=== PATIENT | male | born 1960 | race Caucasian/White ===

== ENCOUNTER 2021-01-15 07:43 | Inpatient (IN) | payer OTHER ==
[2021-01-15] MEDS: Nitroglycerin 50 MG/250 ML BOT 250 ML IVPB SCH (08:00)
[2021-01-15] MEDS ORDERED: Nitroglycerin 50 MG/250 ML BOT 250 ML ONE (08:00)
[2021-01-15 08:29] VITALS: BMI 36.5
[2021-01-15] MEDS ORDERED: Aspirin 325 MG TAB PO SCH (10:00)
[2021-01-15 10:24] LABS: #Eosinphils 0.1 10x3/uL (0.0-0.5); #Monocytes 0.4 10x3/uL (0.0-1.1); #Neutrophils 4.9 10x3/uL (1.5-8.4); %Basophils 0.6 % (0.0-2.0); %Eosinophils 1.7 % (0.0-6.0); %Lymphocytes 20.3 % (18.0-47.0); %Monocytes 5.5 % (0.0-10.0); %Neutrophils 71.6 % (40.0-75.0); Hemoglobin 13.5 g/dL (13.5-17.5); Mean Corpuscular HGB CONC 33.6 g/dL (32.0-36.0); Mean Corpuscular Hemoglobin 30.9 pg (27.0-33.0); Mean Platelet Volume 10.1 fl (7.4-10.4); Platelet Count 224 10x3/uL (150-450); RBC Distribution Width 12.5 % (11.5-14.5); Red Blood Cell (RBC) Count 4.37 10x6/uL (4.32-5.72); White Blood Cell (WBC) Count 6.9 10x3/uL (3.5-10.5)
[2021-01-15 10:34] LABS: PTT 23.6 sec (22.0-33.0); Prothrombin Time 10.9 sec (9.5-12.1)
[2021-01-15 10:38] LABS: ALT (SGPT) 30 U/L (8-55); AST (SGOT) 20 U/L (5-34); Albumin 4.2 g/dL (3.4-4.8); Alkaline Phosphatase 54 U/L (40-110); Anion Gap 10 mmol/L (10-20); BUN (Urea Nitrogen) 10 mg/dL (8.4-25.7); Bilirubin, Total 0.7 mg/dL (0.2-1.2); Calc. Creatinine Clearance 177 mL/min (70-130); Calcium 8.7 mg/dL (7.8-10.44); Carbon Dioxide 26 mmol/L (23-31); Chloride 109 mmol/L (98-107); Globulin 2.7 g/dL (2.4-3.5); Glucose 88 mg/dL (80-115); Magnesium 2.2 mg/dL (1.6-2.6); Phosphorus 3.4 mg/dL (2.3-4.7); Potassium 4.1 mmol/L (3.5-5.1); Protein, Total 6.9 g/dL (5.8-8.1); Sodium 141 mmol/L (136-145)
[2021-01-15 11:00] LABS: Free T4 (Free Thyroxine) 1.01 ng/dL (0.70-1.48); Thyroid Stimulating Hormone 4.4338 uIU/mL (0.35-4.94)
[2021-01-15] MEDS: Heparin 25,000 units/D5W 500 ML IVPB SCH (11:06)
[2021-01-15] MEDS: Heparin 10,000 UNITS/ 10 ML VIAL SLOW IVP SCH ×2 (11:06→18:15)
[2021-01-15 13:15] LABS: Troponin I Less than 0.010 ng/mL (< 0.028)
[2021-01-15] MEDS ORDERED: Calcium Carbonate 500 MG ChewTAB PO PRN (14:14)
[2021-01-15] MEDS ORDERED: Albuterol Sulfate 2.5 mg/3 ml Neb NEB SCH (15:00)
[2021-01-15] MEDS ORDERED: NUTRITIONAL SUPPLEMENT PO SCH (15:00)
[2021-01-15] MEDS: Carvedilol 25 MG TAB PO SCH (16:38)
[2021-01-15] MEDS: Atorvastatin Calcium 40 MG TAB PO SCH (21:28)
[2021-01-15] MEDS: Aripiprazole 10 MG TAB PO SCH (21:28)
[2021-01-15] MEDS: Calcium Carbonate 600 MG + Vit D TAB PO SCH (21:28)
[2021-01-16] MEDS: Heparin 10,000 UNITS/ 10 ML VIAL SLOW IVP SCH (01:14)
[2021-01-16 03:05] LABS: #Eosinphils 0.1 10x3/uL (0.0-0.5); #Monocytes 0.4 10x3/uL (0.0-1.1); %Basophils 0.3 % (0.0-2.0); %Eosinophils 1.6 % (0.0-6.0); %Lymphocytes 19.7 % (18.0-47.0); %Monocytes 6.2 % (0.0-10.0); %Neutrophils 71.9 % (40.0-75.0); Hemoglobin 12.3 g/dL (13.5-17.5); Mean Corpuscular Hemoglobin 30.3 pg (27.0-33.0); Mean Corpuscular Volume 91.9 fl (81.2-95.1); Mean Platelet Volume 10.4 fl (7.4-10.4); Platelet Count 220 10x3/uL (150-450); RBC Distribution Width 12.3 % (11.5-14.5); Red Blood Cell (RBC) Count 4.06 10x6/uL (4.32-5.72); White Blood Cell (WBC) Count 6.9 10x3/uL (3.5-10.5)
[2021-01-16 03:42] LABS: ALT (SGPT) 24 U/L (8-55); AST (SGOT) 15 U/L (5-34); Albumin 3.6 g/dL (3.4-4.8); Alkaline Phosphatase 52 U/L (40-110); Anion Gap 10 mmol/L (10-20); BUN (Urea Nitrogen) 12 mg/dL (8.4-25.7); Bilirubin, Total 0.7 mg/dL (0.2-1.2); Calc. Creatinine Clearance 177 mL/min (70-130); Carbon Dioxide 26 mmol/L (23-31); Cardiac Risk 2.5 (Less than 4.5); Chloride 109 mmol/L (98-107); Cholesterol 96 mg/dl (< 200 Desired); Globulin 2.8 g/dL (2.4-3.5); Glucose 82 mg/dL (80-115); HDL Cholesterol 38 mg/dL (>60 Neg Risk); LDL Cholesterol, Calculated 52 mg/dL; Potassium 3.7 mmol/L (3.5-5.1); Protein, Total 6.4 g/dL (5.8-8.1); Sodium 141 mmol/L (136-145); Triglycerides 29 mg/dL (Less than 150)
[2021-01-16 06:47] LABS: PTT 96.3 sec (22.0-33.0)
[2021-01-16] MEDS: Mometasone 100 MCG/PUFF (1 INHALER) INH SCH ×3 (07:11→20:33)
[2021-01-16] MEDS: Heparin 25,000 units/D5W 500 ML IVPB SCH (07:27)
[2021-01-16] MEDS: Venlafaxine HCl XR 75 MG CAP PO SCH (08:22)
[2021-01-16] MEDS: Carvedilol 25 MG TAB PO SCH ×2 (08:22→16:05)
[2021-01-16] MEDS: Aspirin Chewable 81 MG TAB PO SCH (08:22)
[2021-01-16] MEDS: Levothyroxine Sodium 25 MCG TAB PO SCH (08:22)
[2021-01-16] MEDS: Calcium Carbonate 600 MG + Vit D TAB PO SCH ×2 (08:23→22:49)
[2021-01-16] MEDS: Clopidogrel Bisulfate 75 MG TAB PO SCH (08:23)
[2021-01-16] MEDS: Tamsulosin HCl 0.4 MG CAP PO SCH (08:48)
[2021-01-16] MEDS: Lisinopril 10 MG TAB PO SCH (08:58)
[2021-01-16] MEDS: Ondansetron PF 4 MG/2 ML Vial IVP PRN ×2 (10:45→17:45)
[2021-01-16] MEDS: Nitroglycerin 50 MG/250 ML BOT 250 ML IVPB SCH (11:40)
[2021-01-16] MEDS ORDERED: Lidocaine 1% (PF) 30 ML VIAL ONE (15:53)
[2021-01-16] MEDS ORDERED: Nitroglycerin 50 MG/250 ML BOT 250 ML ONE (15:54)
[2021-01-16] MEDS ORDERED: Fentanyl 100 MCG/2 ML VIAL ONE (15:54)
[2021-01-16] MEDS ORDERED: Heparin 10,000 UNITS/ 10 ML VIAL ONE (15:54)
[2021-01-16] MEDS ORDERED: Midazolam HCl 2 mg/2 ml Vial ONE (15:55)
[2021-01-16] MEDS ORDERED: Adenosine 6 MG/2 ML VIAL ONE (15:55)
[2021-01-16] MEDS ORDERED: Atropine Sulfate 0.4 mg/1 ml Vial ONE (16:52)
[2021-01-16] MEDS ORDERED: Nitroglycerin 0.4 MG TAB (25 Tab Bottle) SL PRN (17:16)
[2021-01-16] MEDS ORDERED: Sodium Chloride 0.9% 200 ML IV PRN (17:16)
[2021-01-16] MEDS ORDERED: Terazosin HCl 1 MG CAP PO SCH (21:00)
[2021-01-16] MEDS: Atorvastatin Calcium 40 MG TAB PO SCH (22:48)
[2021-01-16] MEDS: Aripiprazole 10 MG TAB PO SCH (22:49)
[2021-01-17 00:34] VITALS: TEMP 97.9
[2021-01-17 04:15] LABS: #Eosinphils 0.1 10x3/uL (0.0-0.5); #Monocytes 0.4 10x3/uL (0.0-1.1); #Neutrophils 2.9 10x3/uL (1.5-8.4); %Basophils 0.4 % (0.0-2.0); %Eosinophils 2.9 % (0.0-6.0); %Lymphocytes 24.7 % (18.0-47.0); %Monocytes 8.2 % (0.0-10.0); %Neutrophils 63.6 % (40.0-75.0); Hemoglobin 11.8 g/dL (13.5-17.5); Mean Corpuscular HGB CONC 33.5 g/dL (32.0-36.0); Mean Corpuscular Hemoglobin 30.7 pg (27.0-33.0); Mean Corpuscular Volume 91.7 fl (81.2-95.1); Mean Platelet Volume 10.1 fl (7.4-10.4); Platelet Count 188 10x3/uL (150-450); RBC Distribution Width 12.4 % (11.5-14.5); Red Blood Cell (RBC) Count 3.84 10x6/uL (4.32-5.72); White Blood Cell (WBC) Count 4.5 10x3/uL (3.5-10.5)
[2021-01-17 04:22] LABS: ALT (SGPT) 18 U/L (8-55); AST (SGOT) 12 U/L (5-34); Albumin 3.6 g/dL (3.4-4.8); Alkaline Phosphatase 48 U/L (40-110); Anion Gap 9 mmol/L (10-20); BUN (Urea Nitrogen) 11 mg/dL (8.4-25.7); Bilirubin, Total 0.6 mg/dL (0.2-1.2); Calc. Creatinine Clearance 171 mL/min (70-130); Calcium 8.9 mg/dL (7.8-10.44); Carbon Dioxide 27 mmol/L (23-31); Chloride 109 mmol/L (98-107); Globulin 2.7 g/dL (2.4-3.5); Glucose 118 mg/dL (80-115); Potassium 3.6 mmol/L (3.5-5.1); Protein, Total 6.3 g/dL (5.8-8.1); Sodium 141 mmol/L (136-145)
[2021-01-17] MEDS: Mometasone 100 MCG/PUFF (1 INHALER) INH SCH (07:28)
[2021-01-17] MEDS: Tamsulosin HCl 0.4 MG CAP PO SCH (08:42)
[2021-01-17] MEDS: Calcium Carbonate 600 MG + Vit D TAB PO SCH (08:42)
[2021-01-17] MEDS: Venlafaxine HCl XR 75 MG CAP PO SCH (08:43)
[2021-01-17] MEDS: Aspirin Chewable 81 MG TAB PO SCH (08:43)
[2021-01-17] MEDS: Lisinopril 10 MG TAB PO SCH (08:43)
[2021-01-17] MEDS: Clopidogrel Bisulfate 75 MG TAB PO SCH (08:43)
[2021-01-17 08:44] VITALS: BP 137/75
[2021-01-17] MEDS: Carvedilol 25 MG TAB PO SCH (08:44)
[2021-01-17] MEDS: Levothyroxine Sodium 25 MCG TAB PO SCH (08:44)
[2021-01-17] MEDS ORDERED: Potassium Chloride 20 MEQ TAB PO SCH (09:15)
[2021-01-17 10:09] LABS: Hemoglobin 12.9 g/dL (13.5-17.5); Platelet Count 203 10x3/uL (150-450)
[2021-01-17] MEDS ORDERED: Apixaban 5 MG TAB PO SCH ×2 (10:45→21:00)
== END 2021-01-17 14:45 | DRG 287 ==
LOC: CSHIMCU 07:43 → CSHICU 08:20
PROVIDERS: ADMIT Family Medicine; ATTEND Family Medicine
PROC: 4A023N7 Measurement of Cardiac Sampling and Pressure, Left Heart, Percutaneous Approach (ICD-10-PCS; principal; 2021-01-16)
PROC: B2111ZZ Fluoroscopy of Multiple Coronary Arteries using Low Osmolar Contrast (ICD-10-PCS; 2021-01-16)
PROC: B2151ZZ Fluoroscopy of Left Heart using Low Osmolar Contrast (ICD-10-PCS; 2021-01-16)
PROC: B2121ZZ Fluoroscopy of Single Coronary Artery Bypass Graft using Low Osmolar Contrast (ICD-10-PCS; 2021-01-16)
PROC: B5171ZZ Fluoroscopy of Left Subclavian Vein using Low Osmolar Contrast (ICD-10-PCS; 2021-01-16)
DX: I25.10 Atherosclerotic heart disease of native coronary artery without angina pectoris (principal); I48.92 Unspecified atrial flutter; I50.32 Chronic diastolic (congestive) heart failure; E78.5 Hyperlipidemia, unspecified; J44.9 Chronic obstructive pulmonary disease, unspecified; E03.9 Hypothyroidism, unspecified; I11.0 Hypertensive heart disease with heart failure; F31.9 Bipolar disorder, unspecified; I48.0 Paroxysmal atrial fibrillation; G47.33 Obstructive sleep apnea (adult) (pediatric); E87.6 Hypokalemia; Z95.5 Presence of coronary angioplasty implant and graft; Z95.1 Presence of aortocoronary bypass graft; Z79.02 Long term (current) use of antithrombotics/antiplatelets; Z79.01 Long term (current) use of anticoagulants; Z79.899 Other long term (current) drug therapy; Z88.0 Allergy status to penicillin; Z98.890 Other specified postprocedural states; Z87.891 Personal history of nicotine dependence
CPT/HCPCS: 36415; 71045; 80053; 80061; 83036; 83735; 84100; 84439; 84443; 85014; 85018; 85025; 85049; 85610; 85730; 93005; 93010; 93306; 93459; 94640; 94660; 94664; 94760; 99152; C1760; C1776; J0153; J0461; J1644; J2001; J2250; J2405; J3010; J7620

== ENCOUNTER 2021-01-22 10:02 | Observation (INO) | payer OTHER ==
[2021-01-22 10:26] LABS: #Eosinphils 0.1 10x3/uL (0.0-0.5); #Monocytes 0.4 10x3/uL (0.0-1.1); #Neutrophils 4.1 10x3/uL (1.5-8.4); %Basophils 0.6 % (0.0-2.0); %Eosinophils 2.2 % (0.0-6.0); %Lymphocytes 25.7 % (18.0-47.0); %Monocytes 6.4 % (0.0-10.0); %Neutrophils 64.8 % (40.0-75.0); Hemoglobin 13.6 g/dL (13.5-17.5); Mean Corpuscular HGB CONC 33.7 g/dL (32.0-36.0); Mean Corpuscular Hemoglobin 30.8 pg (27.0-33.0); Mean Corpuscular Volume 91.2 fl (81.2-95.1); Mean Platelet Volume 10.4 fl (7.4-10.4); Platelet Count 231 10x3/uL (150-450); RBC Distribution Width 12.5 % (11.5-14.5); Red Blood Cell (RBC) Count 4.42 10x6/uL (4.32-5.72); White Blood Cell (WBC) Count 6.3 10x3/uL (3.5-10.5)
[2021-01-22 10:41] LABS: ALT (SGPT) 24 U/L (8-55); AST (SGOT) 20 U/L (5-34); Albumin 4.1 g/dL (3.4-4.8); Alkaline Phosphatase 54 U/L (40-110); Anion Gap 14 mmol/L (10-20); BUN (Urea Nitrogen) 8 mg/dL (8.4-25.7); Bilirubin, Total 0.7 mg/dL (0.2-1.2); Calc. Creatinine Clearance 0 mL/min (70-130); Calcium 8.8 mg/dL (7.8-10.44); Carbon Dioxide 24 mmol/L (23-31); Chloride 107 mmol/L (98-107); Glucose 94 mg/dL (80-115); Lipase 56 U/L (8-78); Potassium 4.3 mmol/L (3.5-5.1); Protein, Total 7.1 g/dL (5.8-8.1); Sodium 141 mmol/L (136-145)
[2021-01-22] MEDS ORDERED: Morphine 4 MG/ML VIAL ONE (13:15)
[2021-01-22 14:52] LABS: Troponin I Less than 0.010 ng/mL (< 0.028)
[2021-01-22] MEDS ORDERED: Ondansetron ODT 4 MG TAB PO PRN (17:15)
[2021-01-22] MEDS ORDERED: Nitroglycerin 0.4 MG TAB (25 Tab Bottle) SL PRN (17:15)
[2021-01-22] MEDS ORDERED: Ondansetron PF 4 MG/2 ML Vial IVP PRN (17:15)
[2021-01-22 17:21] VITALS: BMI 34.7
[2021-01-22 18:06] LABS: Troponin I Less than 0.010 ng/mL (< 0.028)
[2021-01-22] MEDS ORDERED: Morphine 4 MG/ML VIAL SLOW IVP SCH (20:00)
[2021-01-22] MEDS ORDERED: Atorvastatin Calcium 40 MG TAB PO SCH (21:00)
[2021-01-22] MEDS ORDERED: Aripiprazole 10 MG TAB PO SCH (21:00)
[2021-01-22] MEDS: Apixaban 5 MG TAB PO SCH (21:02)
[2021-01-22] MEDS: Carvedilol 25 MG TAB PO SCH (21:02)
[2021-01-23] MEDS ORDERED: Levothyroxine Sodium 125 MCG TAB PO SCH (06:00)
[2021-01-23 06:01] LABS: #Basophils 0.1 10x3/uL (0.0-0.2); #Eosinphils 0.1 10x3/uL (0.0-0.5); #Monocytes 0.4 10x3/uL (0.0-1.1); #Neutrophils 3.2 10x3/uL (1.5-8.4); %Basophils 0.9 % (0.0-2.0); %Eosinophils 2.4 % (0.0-6.0); %Lymphocytes 33.9 % (18.0-47.0); %Neutrophils 55.5 % (40.0-75.0); Hemoglobin 13.7 g/dL (13.5-17.5); Mean Corpuscular HGB CONC 33.3 g/dL (32.0-36.0); Mean Corpuscular Hemoglobin 29.8 pg (27.0-33.0); Mean Corpuscular Volume 89.5 fl (81.2-95.1); Mean Platelet Volume 10.4 fl (7.4-10.4); Platelet Count 196 10x3/uL (150-450); RBC Distribution Width 12.7 % (11.5-14.5); Red Blood Cell (RBC) Count 4.59 10x6/uL (4.32-5.72); White Blood Cell (WBC) Count 5.7 10x3/uL (3.5-10.5)
[2021-01-23 06:12] LABS: Anion Gap 13 mmol/L (10-20); BUN (Urea Nitrogen) 14 mg/dL (8.4-25.7); Calc. Creatinine Clearance 158 mL/min (70-130); Carbon Dioxide 22 mmol/L (23-31); Chloride 111 mmol/L (98-107); Glucose 96 mg/dL (80-115); Potassium 4.1 mmol/L (3.5-5.1); Sodium 142 mmol/L (136-145)
[2021-01-23] MEDS: Apixaban 5 MG TAB PO SCH (07:36)
[2021-01-23] MEDS: Carvedilol 25 MG TAB PO SCH (07:36)
[2021-01-23] MEDS ORDERED: Morphine 4 MG/ML VIAL SLOW IVP PRN (08:06)
[2021-01-23 12:12] VITALS: BP 129/84; TEMP 97.6
[2021-01-23 16:42] LABS: SARS-CoV-2 PCR by NAA Not Detected (NotDetected)
== END 2021-01-23 15:31 | disposition home or self-care (01) ==
LOC: CSHERS 10:02 → EEVIPCON 10:02 → CSHTELE 14:23
PROVIDERS: ADMIT Internal Medicine; ATTEND Internal Medicine
DX: R07.9 Chest pain, unspecified (principal); I25.10 Atherosclerotic heart disease of native coronary artery without angina pectoris; J44.9 Chronic obstructive pulmonary disease, unspecified; I10 Essential (primary) hypertension; E03.9 Hypothyroidism, unspecified; F31.9 Bipolar disorder, unspecified; Z95.1 Presence of aortocoronary bypass graft; Z95.5 Presence of coronary angioplasty implant and graft; Z79.02 Long term (current) use of antithrombotics/antiplatelets; G62.9 Polyneuropathy, unspecified; Z87.891 Personal history of nicotine dependence; Z79.899 Other long term (current) drug therapy; Z79.01 Long term (current) use of anticoagulants; Z20.822 Contact with and (suspected) exposure to COVID-19
CPT/HCPCS: 36415; 71045; 80048; 80053; 83690; 83880; 84484; 85025; 93005; 94760; 96374; 96376; G0378; J2270; U0003; U0005

== ENCOUNTER 2021-01-25 22:55 | Emergency (ER) | payer OTHER ==
[2021-01-25 23:42] LABS: #Basophils 0.1 10x3/uL (0.0-0.2); #Eosinphils 0.1 10x3/uL (0.0-0.5); #Monocytes 0.6 10x3/uL (0.0-1.1); #Neutrophils 4.1 10x3/uL (1.5-8.4); %Basophils 0.7 % (0.0-2.0); %Eosinophils 1.9 % (0.0-6.0); %Lymphocytes 29.7 % (18.0-47.0); %Monocytes 8.1 % (0.0-10.0); %Neutrophils 59.3 % (40.0-75.0); Hemoglobin 13.4 g/dL (13.5-17.5); Mean Corpuscular HGB CONC 34.4 g/dL (32.0-36.0); Mean Corpuscular Hemoglobin 30.7 pg (27.0-33.0); Mean Corpuscular Volume 89.2 fl (81.2-95.1); Platelet Count 233 10x3/uL (150-450); RBC Distribution Width 12.5 % (11.5-14.5); Red Blood Cell (RBC) Count 4.37 10x6/uL (4.32-5.72); White Blood Cell (WBC) Count 6.9 10x3/uL (3.5-10.5)
[2021-01-25 23:48] LABS: ALT (SGPT) 24 U/L (8-55); AST (SGOT) 22 U/L (5-34); Albumin 4.2 g/dL (3.4-4.8); Alkaline Phosphatase 56 U/L (40-110); Anion Gap 12 mmol/L (10-20); BUN (Urea Nitrogen) 12 mg/dL (8.4-25.7); Bilirubin, Total 0.7 mg/dL (0.2-1.2); Calc. Creatinine Clearance 0 mL/min (70-130); Calcium 9.1 mg/dL (7.8-10.44); Carbon Dioxide 26 mmol/L (23-31); Chloride 109 mmol/L (98-107); Globulin 3.2 g/dL (2.4-3.5); Glucose 121 mg/dL (80-115); Potassium 3.8 mmol/L (3.5-5.1); Protein, Total 7.4 g/dL (5.8-8.1); Sodium 143 mmol/L (136-145)
[2021-01-25] MEDS ORDERED: Nitroglycerin 0.4 MG TAB 1 EACH ONE ×2 (23:52→23:59)
[2021-01-26] MEDS ORDERED: Nitroglycerin 0.4 MG TAB 1 EACH ONE (00:09)
[2021-01-26] MEDS ORDERED: Morphine 4 MG/ML VIAL ONE (01:57)
== END 2021-01-26 08:25 | disposition short-term general hospital (02) ==
LOC: CSHERS 22:55
DX: R55 Syncope and collapse (principal); R07.9 Chest pain, unspecified; I10 Essential (primary) hypertension; I25.10 Atherosclerotic heart disease of native coronary artery without angina pectoris; I25.2 Old myocardial infarction; I48.91 Unspecified atrial fibrillation; G47.30 Sleep apnea, unspecified; E03.9 Hypothyroidism, unspecified; Z79.899 Other long term (current) drug therapy; Z79.02 Long term (current) use of antithrombotics/antiplatelets; F17.210 Nicotine dependence, cigarettes, uncomplicated
CPT/HCPCS: 71045; 80053; 84484; 85025; 93005; 96374; J2270

== ENCOUNTER 2021-02-12 22:58 | Emergency (ER) | payer OTHER ==
[2021-02-12] MEDS ORDERED: Ondansetron PF 4 MG/2 ML Vial ONE (23:36)
[2021-02-12 23:45] LABS: #Eosinphils 0.1 10x3/uL (0.0-0.5); #Monocytes 0.4 10x3/uL (0.0-1.1); #Neutrophils 3.7 10x3/uL (1.5-8.4); %Basophils 0.3 % (0.0-2.0); %Eosinophils 2.2 % (0.0-6.0); %Lymphocytes 28.5 % (18.0-47.0); %Monocytes 6.1 % (0.0-10.0); %Neutrophils 62.6 % (40.0-75.0); Hemoglobin 13.7 g/dL (13.5-17.5); Mean Corpuscular HGB CONC 35.1 g/dL (32.0-36.0); Mean Corpuscular Hemoglobin 30.9 pg (27.0-33.0); Mean Corpuscular Volume 87.8 fl (81.2-95.1); Mean Platelet Volume 10.2 fl (7.4-10.4); Platelet Count 258 10x3/uL (150-450); RBC Distribution Width 12.6 % (11.5-14.5); Red Blood Cell (RBC) Count 4.44 10x6/uL (4.32-5.72); White Blood Cell (WBC) Count 5.9 10x3/uL (3.5-10.5)
[2021-02-12] MEDS ORDERED: Labetalol HCl 100 MG/20 ML VIAL ONE (23:47)
[2021-02-12] MEDS ORDERED: Morphine 4 MG/ML VIAL ONE (23:47)
[2021-02-13 00:07] LABS: ALT (SGPT) 27 U/L (8-55); AST (SGOT) 22 U/L (5-34); Albumin 4.3 g/dL (3.4-4.8); Alkaline Phosphatase 58 U/L (40-110); Anion Gap 12 mmol/L (10-20); BUN (Urea Nitrogen) 9 mg/dL (8.4-25.7); Bilirubin, Total 0.5 mg/dL (0.2-1.2); Calc. Creatinine Clearance 0 mL/min (70-130); Calcium 8.9 mg/dL (7.8-10.44); Carbon Dioxide 25 mmol/L (23-31); Chloride 108 mmol/L (98-107); Globulin 2.9 g/dL (2.4-3.5); Glucose 107 mg/dL (80-115); Lipase 46 U/L (8-78); Potassium 3.9 mmol/L (3.5-5.1); Protein, Total 7.2 g/dL (5.8-8.1); Sodium 141 mmol/L (136-145)
[2021-02-13] MEDS ORDERED: Morphine 4 MG/ML VIAL ONE (02:21)
== END 2021-02-13 04:17 ==
LOC: CSHERS 22:58
DX: R07.9 Chest pain, unspecified (principal); I10 Essential (primary) hypertension; I25.10 Atherosclerotic heart disease of native coronary artery without angina pectoris; I25.2 Old myocardial infarction; E03.9 Hypothyroidism, unspecified; J44.9 Chronic obstructive pulmonary disease, unspecified; G47.30 Sleep apnea, unspecified; Z87.891 Personal history of nicotine dependence; Z79.899 Other long term (current) drug therapy
CPT/HCPCS: 36415; 71045; 80053; 83690; 84484; 85025; 93005; 96374; 96375; 96376; J2270; J2405

== ENCOUNTER 2021-03-13 22:07 | Emergency (ER) | payer OTHER ==
[2021-03-13 22:59] LABS: #Eosinphils 0.1 10x3/uL (0.0-0.5); #Monocytes 0.5 10x3/uL (0.0-1.1); #Neutrophils 4.5 10x3/uL (1.5-8.4); %Basophils 0.6 % (0.0-2.0); %Eosinophils 1.9 % (0.0-6.0); %Lymphocytes 26.1 % (18.0-47.0); %Monocytes 7.5 % (0.0-10.0); %Neutrophils 63.3 % (40.0-75.0); Hemoglobin 12.5 g/dL (13.5-17.5); Mean Corpuscular HGB CONC 33.4 g/dL (32.0-36.0); Mean Corpuscular Hemoglobin 29.9 pg (27.0-33.0); Mean Corpuscular Volume 89.5 fl (81.2-95.1); Mean Platelet Volume 10.1 fl (7.4-10.4); Platelet Count 297 10x3/uL (150-450); RBC Distribution Width 12.9 % (11.5-14.5); Red Blood Cell (RBC) Count 4.18 10x6/uL (4.32-5.72)
[2021-03-13 23:17] LABS: ALT (SGPT) 17 U/L (8-55); AST (SGOT) 17 U/L (5-34); Albumin 4.1 g/dL (3.4-4.8); Alkaline Phosphatase 54 U/L (40-110); Anion Gap 14 mmol/L (10-20); BUN (Urea Nitrogen) 13 mg/dL (8.4-25.7); Bilirubin, Total 0.5 mg/dL (0.2-1.2); Calc. Creatinine Clearance 0 mL/min (70-130); Calcium 8.9 mg/dL (7.8-10.44); Carbon Dioxide 24 mmol/L (23-31); Chloride 107 mmol/L (98-107); Globulin 2.8 g/dL (2.4-3.5); Glucose 78 mg/dL (80-115); Lipase 51 U/L (8-78); Potassium 4.1 mmol/L (3.5-5.1); Protein, Total 6.9 g/dL (5.8-8.1); Sodium 141 mmol/L (136-145)
[2021-03-14] MEDS ORDERED: Acetaminophen 325 MG TAB ONE (02:44)
== END 2021-03-14 02:45 ==
LOC: CSHERS 22:07 → EEVIPCON 22:07 → CSHERS 03-14 02:45
DX: R07.89 Other chest pain (principal); I10 Essential (primary) hypertension; I48.91 Unspecified atrial fibrillation; I25.10 Atherosclerotic heart disease of native coronary artery without angina pectoris; I25.2 Old myocardial infarction; E03.9 Hypothyroidism, unspecified; G47.31 Primary central sleep apnea; J44.9 Chronic obstructive pulmonary disease, unspecified; Z87.891 Personal history of nicotine dependence; Z79.899 Other long term (current) drug therapy
CPT/HCPCS: 36415; 71045; 80053; 83690; 83880; 84484; 85025; 93005

== ENCOUNTER 2021-03-28 21:41 | Emergency (ER) | payer OTHER ==
[2021-03-28] MEDS ORDERED: Morphine 4 MG/ML VIAL ONE (22:15)
[2021-03-28 22:45] LABS: #Eosinphils 0.1 10x3/uL (0.0-0.5); #Monocytes 0.4 10x3/uL (0.0-1.1); #Neutrophils 3.2 10x3/uL (1.5-8.4); %Basophils 0.6 % (0.0-2.0); %Eosinophils 2.2 % (0.0-6.0); %Lymphocytes 30.9 % (18.0-47.0); %Monocytes 6.9 % (0.0-10.0); Mean Corpuscular HGB CONC 33.7 g/dL (32.0-36.0); Mean Corpuscular Hemoglobin 30.2 pg (27.0-33.0); Mean Corpuscular Volume 89.4 fl (81.2-95.1); Mean Platelet Volume 10.1 fl (7.4-10.4); Platelet Count 257 10x3/uL (150-450); RBC Distribution Width 13.3 % (11.5-14.5); Red Blood Cell (RBC) Count 3.98 10x6/uL (4.32-5.72); White Blood Cell (WBC) Count 5.3 10x3/uL (3.5-10.5)
[2021-03-28 23:01] LABS: ALT (SGPT) 25 U/L (8-55); AST (SGOT) 23 U/L (5-34); Albumin 3.9 g/dL (3.4-4.8); Alkaline Phosphatase 47 U/L (40-110); Anion Gap 12 mmol/L (10-20); BUN (Urea Nitrogen) 11 mg/dL (8.4-25.7); Bilirubin, Total 0.4 mg/dL (0.2-1.2); Calc. Creatinine Clearance 0 mL/min (70-130); Calcium 8.5 mg/dL (7.8-10.44); Carbon Dioxide 26 mmol/L (23-31); Chloride 111 mmol/L (98-107); Globulin 2.6 g/dL (2.4-3.5); Glucose 136 mg/dL (80-115); Potassium 3.5 mmol/L (3.5-5.1); Protein, Total 6.5 g/dL (5.8-8.1); Sodium 145 mmol/L (136-145)
[2021-03-29] MEDS ORDERED: Morphine 4 MG/ML VIAL ONE (00:42)
[2021-03-29 02:26] LABS: Troponin I Less than 0.010 ng/mL (< 0.028)
== END 2021-03-29 02:45 ==
LOC: CSHERS 21:41 → EEVIPCON 21:41 → CSHERS 03-29 02:45
DX: R07.9 Chest pain, unspecified (principal); I25.10 Atherosclerotic heart disease of native coronary artery without angina pectoris; I25.2 Old myocardial infarction; E03.9 Hypothyroidism, unspecified; I10 Essential (primary) hypertension; J44.9 Chronic obstructive pulmonary disease, unspecified; I48.91 Unspecified atrial fibrillation; G47.30 Sleep apnea, unspecified; Z87.891 Personal history of nicotine dependence; Z79.899 Other long term (current) drug therapy; Z79.01 Long term (current) use of anticoagulants
CPT/HCPCS: 36415; 71045; 80053; 84484; 85025; 93005; 93010; 96374; 96376; J2270

== ENCOUNTER 2021-03-30 12:39 | Emergency (ER) | payer OTHER ==
[2021-03-30] MEDS ORDERED: Acetaminophen 325 MG TAB ONE ×2 (13:42→13:48)
== END 2021-03-30 14:34 ==
LOC: CSHERS 12:39 → EEVIPCON 12:39 → CSHERS 14:34
DX: M25.561 Pain in right knee (principal); I25.10 Atherosclerotic heart disease of native coronary artery without angina pectoris; I25.2 Old myocardial infarction; E03.9 Hypothyroidism, unspecified; N40.0 Benign prostatic hyperplasia without lower urinary tract symptoms; I10 Essential (primary) hypertension; J44.9 Chronic obstructive pulmonary disease, unspecified; G47.30 Sleep apnea, unspecified; I48.91 Unspecified atrial fibrillation; Z87.891 Personal history of nicotine dependence; W18.30XA Fall on same level, unspecified, initial encounter; Y93.01 Activity, walking, marching and hiking; Z79.899 Other long term (current) drug therapy

== ENCOUNTER 2021-04-03 21:48 | Emergency (ER) | payer OTHER ==
[2021-04-03 22:38] LABS: #Eosinphils 0.1 10x3/uL (0.0-0.5); #Monocytes 0.4 10x3/uL (0.0-1.1); #Neutrophils 3.1 10x3/uL (1.5-8.4); %Basophils 0.6 % (0.0-2.0); %Eosinophils 2.2 % (0.0-6.0); %Lymphocytes 30.7 % (18.0-47.0); %Monocytes 8.2 % (0.0-10.0); %Neutrophils 58.1 % (40.0-75.0); Hemoglobin 12.7 g/dL (13.5-17.5); Mean Corpuscular HGB CONC 34.5 g/dL (32.0-36.0); Mean Corpuscular Hemoglobin 30.8 pg (27.0-33.0); Mean Corpuscular Volume 89.3 fl (81.2-95.1); Mean Platelet Volume 10.4 fl (7.4-10.4); Platelet Count 247 10x3/uL (150-450); RBC Distribution Width 13.7 % (11.5-14.5); Red Blood Cell (RBC) Count 4.12 10x6/uL (4.32-5.72); White Blood Cell (WBC) Count 5.4 10x3/uL (3.5-10.5)
[2021-04-03 22:58] LABS: ALT (SGPT) 23 U/L (8-55); AST (SGOT) 19 U/L (5-34); Albumin 3.8 g/dL (3.4-4.8); Alkaline Phosphatase 49 U/L (40-110); Anion Gap 12 mmol/L (10-20); BUN (Urea Nitrogen) 11 mg/dL (8.4-25.7); Bilirubin, Total 0.5 mg/dL (0.2-1.2); Calc. Creatinine Clearance 0 mL/min (70-130); Calcium 8.5 mg/dL (7.8-10.44); Carbon Dioxide 24 mmol/L (23-31); Chloride 111 mmol/L (98-107); Glucose 115 mg/dL (80-115); Lipase 41 U/L (8-78); Potassium 3.6 mmol/L (3.5-5.1); Protein, Total 6.8 g/dL (5.8-8.1); Sodium 143 mmol/L (136-145)
[2021-04-03] MEDS ORDERED: Nitroglycerin 2% Ointment 1 INCH/1 GM Packet ONE (23:03)
[2021-04-04 00:59] LABS: SARS-CoV-2 NAA Rapid Test Not Detected (NotDetected)
[2021-04-04] MEDS ORDERED: HYDROcodone/Acetaminophen 5/325 mg Tablet ONE (01:23)
[2021-04-04 02:54] LABS: Bilirubin Neg (Negative); Blood, Urine Negative (Negative); Clarity Clear (Clear); Glucose, Urine (Dipstick) Normal (Negative); Ketone, Urine Negative (Negative); Leukocyte 25 (Negative); Nitrite Negative (Negative); Protein, Urine (Dipstick) Negative (Neg-Trace); Urobilinogen Normal mg/dL (Less than 2)
[2021-04-04 03:03] LABS: Bacteria/HPF Rare-Few HPF (None Seen); RBC/HPF 0-3 HPF (0-3); Squamous Epithelial 0-3 HPF (0-3); WBC/HPF 0-3 HPF (0-3)
[2021-04-04] MEDS ORDERED: Amlodipine 5 MG TAB ONE (08:47)
[2021-04-04] MEDS ORDERED: Lisinopril 10 MG TAB ONE (08:47)
[2021-04-04] MEDS ORDERED: Clopidogrel Bisulfate 75 MG TAB ONE (08:47)
== END 2021-04-04 10:40 | disposition home or self-care (01) ==
LOC: EEVIPCON 21:48 → CSHERS 21:48
DX: R07.89 Other chest pain (principal); S00.81XA Abrasion of other part of head, initial encounter; I25.10 Atherosclerotic heart disease of native coronary artery without angina pectoris; I25.2 Old myocardial infarction; E03.9 Hypothyroidism, unspecified; N40.0 Benign prostatic hyperplasia without lower urinary tract symptoms; I10 Essential (primary) hypertension; J44.9 Chronic obstructive pulmonary disease, unspecified; I48.91 Unspecified atrial fibrillation; G47.30 Sleep apnea, unspecified; Z87.891 Personal history of nicotine dependence; Z79.899 Other long term (current) drug therapy; W19.XXXA Unspecified fall, initial encounter
CPT/HCPCS: 36415; 70450; 71045; 80053; 81003; 81015; 83690; 83880; 84484; 85025; 93005; U0002

== ENCOUNTER 2021-05-20 01:42 | Emergency (ER) | payer OTHER ==
[2021-05-20 02:12] LABS: #Eosinphils 0.1 10x3/uL (0.0-0.5); #Monocytes 0.3 10x3/uL (0.0-1.1); #Neutrophils 3.5 10x3/uL (1.5-8.4); %Basophils 0.6 % (0.0-2.0); %Eosinophils 1.7 % (0.0-6.0); %Lymphocytes 27.9 % (18.0-47.0); %Monocytes 6.1 % (0.0-10.0); %Neutrophils 63.3 % (40.0-75.0); Hemoglobin 13.4 g/dL (13.5-17.5); Mean Corpuscular HGB CONC 34.4 g/dL (32.0-36.0); Mean Corpuscular Hemoglobin 29.5 pg (27.0-33.0); Mean Corpuscular Volume 85.5 fl (81.2-95.1); Mean Platelet Volume 10.1 fl (7.4-10.4); Platelet Count 251 10x3/uL (150-450); RBC Distribution Width 12.9 % (11.5-14.5); Red Blood Cell (RBC) Count 4.55 10x6/uL (4.32-5.72); White Blood Cell (WBC) Count 5.5 10x3/uL (3.5-10.5)
[2021-05-20] MEDS ORDERED: Morphine 4 MG/ML VIAL ONE ×2 (02:26→05:47)
[2021-05-20 02:37] LABS: ALT (SGPT) 18 U/L (8-55); AST (SGOT) 18 U/L (5-34); Albumin 4.1 g/dL (3.4-4.8); Alkaline Phosphatase 51 U/L (40-110); Anion Gap 14 mmol/L (10-20); BUN (Urea Nitrogen) 12 mg/dL (8.4-25.7); Bilirubin, Total 0.5 mg/dL (0.2-1.2); Calc. Creatinine Clearance 0 mL/min (70-130); Calcium 9.4 mg/dL (7.8-10.44); Carbon Dioxide 26 mmol/L (23-31); Chloride 107 mmol/L (98-107); Globulin 2.8 g/dL (2.4-3.5); Glucose 115 mg/dL (80-115); Potassium 3.6 mmol/L (3.5-5.1); Protein, Total 6.9 g/dL (5.8-8.1); Sodium 143 mmol/L (136-145)
[2021-05-20 02:48] LABS: SARS-CoV-2 NAA Rapid Test Not Detected (NotDetected)
[2021-05-20] MEDS ORDERED: Ondansetron PF 4 MG/2 ML Vial ONE (03:04)
[2021-05-20] MEDS ORDERED: hydrALAZINE 20 MG/ML VIAL ONE (05:48)
== END 2021-05-20 05:59 | disposition home or self-care (01) ==
LOC: CSHERS 01:42 → EEVIPCON 01:42 → CSHERS 05:59
DX: R07.9 Chest pain, unspecified (principal); Z20.822 Contact with and (suspected) exposure to COVID-19; I25.10 Atherosclerotic heart disease of native coronary artery without angina pectoris; I25.2 Old myocardial infarction; E03.9 Hypothyroidism, unspecified; I10 Essential (primary) hypertension; J44.9 Chronic obstructive pulmonary disease, unspecified; I48.91 Unspecified atrial fibrillation; Z87.891 Personal history of nicotine dependence; Z79.01 Long term (current) use of anticoagulants; Z79.899 Other long term (current) drug therapy
CPT/HCPCS: 36415; 71045; 80053; 83880; 84484; 85025; 93005; 96374; 96375; 96376; J0360; J2270; J2405; U0002

== ENCOUNTER 2021-06-07 10:31 | Emergency (ER) | payer OTHER ==
[2021-06-07 11:29] LABS: #Eosinphils 0.1 10x3/uL (0.0-0.5); #Monocytes 0.4 10x3/uL (0.0-1.1); #Neutrophils 3.9 10x3/uL (1.5-8.4); %Basophils 0.7 % (0.0-2.0); %Eosinophils 1.5 % (0.0-6.0); %Monocytes 7.1 % (0.0-10.0); %Neutrophils 65.4 % (40.0-75.0); Hemoglobin 14.1 g/dL (13.5-17.5); Mean Corpuscular HGB CONC 34.6 g/dL (32.0-36.0); Mean Corpuscular Hemoglobin 29.9 pg (27.0-33.0); Mean Corpuscular Volume 86.2 fl (81.2-95.1); Mean Platelet Volume 10.9 fl (7.4-10.4); Platelet Count 270 10x3/uL (150-450); RBC Distribution Width 12.6 % (11.5-14.5); Red Blood Cell (RBC) Count 4.72 10x6/uL (4.32-5.72)
[2021-06-07] MEDS ORDERED: Nitroglycerin 0.4 MG TAB 1 EACH ONE (13:42)
[2021-06-07 14:00] LABS: ALT (SGPT) 17 U/L (8-55); AST (SGOT) 31 U/L (5-34); Albumin 4.1 g/dL (3.4-4.8); Alkaline Phosphatase 51 U/L (40-110); Anion Gap 16 mmol/L (10-20); BUN (Urea Nitrogen) 11 mg/dL (8.4-25.7); Bilirubin, Total 0.6 mg/dL (0.2-1.2); Calc. Creatinine Clearance 0 mL/min (70-130); Carbon Dioxide 22 mmol/L (23-31); Chloride 107 mmol/L (98-107); Globulin 3.7 g/dL (2.4-3.5); Glucose 104 mg/dL (80-115); Lipase 46 U/L (8-78); Potassium 4.1 mmol/L (3.5-5.1); Protein, Total 7.8 g/dL (5.8-8.1); Sodium 141 mmol/L (136-145)
[2021-06-07] MEDS ORDERED: Aspirin Chewable 81 MG TAB ONE (14:04)
[2021-06-07 15:18] LABS: SARS-CoV-2 NAA Rapid Test Not Detected (NotDetected)
[2021-06-07] MEDS ORDERED: Nitroglycerin 2% Ointment 1 INCH/1 GM Packet ONE (16:29)
[2021-06-07] MEDS ORDERED: Acetaminophen 500 MG TAB ONE (16:30)
[2021-06-07] MEDS ORDERED: Morphine 4 MG/ML VIAL ONE (16:30)
== END 2021-06-07 19:14 | disposition short-term general hospital (02) ==
LOC: CSHERS 10:31
DX: R07.9 Chest pain, unspecified (principal); I10 Essential (primary) hypertension; M19.90 Unspecified osteoarthritis, unspecified site; I25.10 Atherosclerotic heart disease of native coronary artery without angina pectoris; I25.2 Old myocardial infarction; E03.9 Hypothyroidism, unspecified; J44.9 Chronic obstructive pulmonary disease, unspecified; I48.91 Unspecified atrial fibrillation; G47.30 Sleep apnea, unspecified; Z20.822 Contact with and (suspected) exposure to COVID-19; Z87.891 Personal history of nicotine dependence; Z79.01 Long term (current) use of anticoagulants; Z79.899 Other long term (current) drug therapy
CPT/HCPCS: 36415; 71045; 80053; 83690; 84484; 85025; 93005; 96374; J2270; U0002

== ENCOUNTER 2021-06-19 06:46 | Emergency (ER) | payer OTHER ==
[2021-06-19 07:27] LABS: #Basophils 0.1 10x3/uL (0.0-0.2); #Eosinphils 0.1 10x3/uL (0.0-0.5); #Monocytes 0.4 10x3/uL (0.0-1.1); #Neutrophils 4.3 10x3/uL (1.5-8.4); %Basophils 0.7 % (0.0-2.0); %Eosinophils 1.8 % (0.0-6.0); %Lymphocytes 27.9 % (18.0-47.0); %Monocytes 6.3 % (0.0-10.0); %Neutrophils 62.9 % (40.0-75.0); Hemoglobin 13.3 g/dL (13.5-17.5); Mean Corpuscular HGB CONC 34.3 g/dL (32.0-36.0); Mean Corpuscular Hemoglobin 29.6 pg (27.0-33.0); Mean Corpuscular Volume 86.4 fl (81.2-95.1); Mean Platelet Volume 10.5 fl (7.4-10.4); Platelet Count 251 10x3/uL (150-450); RBC Distribution Width 12.7 % (11.5-14.5); Red Blood Cell (RBC) Count 4.49 10x6/uL (4.32-5.72); White Blood Cell (WBC) Count 6.8 10x3/uL (3.5-10.5)
[2021-06-19 07:53] LABS: ALT (SGPT) 19 U/L (8-55); AST (SGOT) 15 U/L (5-34); Alkaline Phosphatase 57 U/L (40-110); Anion Gap 17 mmol/L (10-20); BUN (Urea Nitrogen) 12 mg/dL (8.4-25.7); Bilirubin, Total 0.5 mg/dL (0.2-1.2); Calc. Creatinine Clearance 0 mL/min (70-130); Calcium 9.4 mg/dL (7.8-10.44); Carbon Dioxide 23 mmol/L (23-31); Chloride 108 mmol/L (98-107); Globulin 2.8 g/dL (2.4-3.5); Glucose 83 mg/dL (80-115); Potassium 4.1 mmol/L (3.5-5.1); Protein, Total 6.8 g/dL (5.8-8.1); Sodium 144 mmol/L (136-145)
== END 2021-06-19 08:35 ==
LOC: CSHERS 06:46
DX: R07.89 Other chest pain (principal); R00.1 Bradycardia, unspecified; M19.90 Unspecified osteoarthritis, unspecified site; I25.10 Atherosclerotic heart disease of native coronary artery without angina pectoris; I25.2 Old myocardial infarction; E03.9 Hypothyroidism, unspecified; I10 Essential (primary) hypertension; J44.9 Chronic obstructive pulmonary disease, unspecified; I48.91 Unspecified atrial fibrillation; G47.31 Primary central sleep apnea; Z87.891 Personal history of nicotine dependence; Z79.01 Long term (current) use of anticoagulants; Z79.899 Other long term (current) drug therapy
CPT/HCPCS: 36415; 71045; 80053; 84484; 85025; 93005

== ENCOUNTER 2022-02-18 09:59 | Emergency (ER) | payer OTHER ==
[2022-02-18 10:45] LABS: SARS-CoV-2 NAA Rapid Test Not Detected (NotDetected)
[2022-02-18 10:47] LABS: #Eosinphils 0.1 10x3/uL (0.0-0.5); #Monocytes 0.4 10x3/uL (0.0-1.1); #Neutrophils 3.6 10x3/uL (1.5-8.4); %Basophils 0.7 % (0.0-2.0); %Eosinophils 1.1 % (0.0-6.0); %Monocytes 7.9 % (0.0-10.0); %Neutrophils 66.1 % (40.0-75.0); Hemoglobin 12.5 g/dL (13.5-17.5); Mean Corpuscular Volume 88.2 fl (81.2-95.1); Mean Platelet Volume 10.4 fl (7.4-10.4); Platelet Count 269 10x3/uL (150-450); RBC Distribution Width 13.8 % (11.5-14.5); Red Blood Cell (RBC) Count 4.17 10x6/uL (4.32-5.72); White Blood Cell (WBC) Count 5.4 10x3/uL (3.5-10.5)
[2022-02-18 11:08] LABS: ALT (SGPT) 13 U/L (8-55); AST (SGOT) 11 U/L (5-34); Alkaline Phosphatase 45 U/L (40-110); Anion Gap 13 mmol/L (10-20); BUN (Urea Nitrogen) 10 mg/dL (8.4-25.7); Bilirubin, Total 0.6 mg/dL (0.2-1.2); Calc. Creatinine Clearance 0 mL/min (70-130); Calcium 8.8 mg/dL (7.8-10.44); Carbon Dioxide 24 mmol/L (23-31); Chloride 111 mmol/L (98-107); Estimated GFR 97; Globulin 2.5 g/dL (2.4-3.5); Glucose 96 mg/dL (80-115); Lipase 40 U/L (8-78); Potassium 4.1 mmol/L (3.5-5.1); Protein, Total 6.5 g/dL (5.8-8.1); Sodium 144 mmol/L (136-145)
== END 2022-02-18 15:01 | disposition home or self-care (01) ==
LOC: CSHERS 09:59 → EEVIPCON 09:59 → CSHERS 15:01
DX: R07.9 Chest pain, unspecified (principal); E03.9 Hypothyroidism, unspecified; I10 Essential (primary) hypertension; J44.9 Chronic obstructive pulmonary disease, unspecified; Z87.891 Personal history of nicotine dependence; Z20.822 Contact with and (suspected) exposure to COVID-19
CPT/HCPCS: 36415; 71045; 80053; 83690; 84484; 85025; 93005; U0002

== ENCOUNTER 2022-03-16 03:57 | Emergency (ER) | payer OTHER ==
[2022-03-16 04:21] LABS: #Eosinphils 0.1 10x3/uL (0.0-0.5); #Monocytes 0.4 10x3/uL (0.0-1.1); #Neutrophils 2.7 10x3/uL (1.5-8.4); %Basophils 0.5 % (0.0-2.0); %Eosinophils 1.8 % (0.0-6.0); %Lymphocytes 25.8 % (18.0-47.0); %Monocytes 9.2 % (0.0-10.0); %Neutrophils 62.5 % (40.0-75.0); Hemoglobin 13.1 g/dL (13.5-17.5); Mean Corpuscular Hemoglobin 29.6 pg (27.0-33.0); Mean Corpuscular Volume 86.9 fl (81.2-95.1); Mean Platelet Volume 10.5 fl (7.4-10.4); Platelet Count 238 10x3/uL (150-450); RBC Distribution Width 13.7 % (11.5-14.5); Red Blood Cell (RBC) Count 4.43 10x6/uL (4.32-5.72); White Blood Cell (WBC) Count 4.3 10x3/uL (3.5-10.5)
[2022-03-16 04:42] LABS: ALT (SGPT) 15 U/L (8-55); AST (SGOT) 15 U/L (5-34); Alkaline Phosphatase 48 U/L (40-110); Anion Gap 12 mmol/L (10-20); BUN (Urea Nitrogen) 12 mg/dL (8.4-25.7); Bilirubin, Total 0.6 mg/dL (0.2-1.2); Calc. Creatinine Clearance 0 mL/min (70-130); Calcium 8.4 mg/dL (7.8-10.44); Carbon Dioxide 26 mmol/L (23-31); Chloride 107 mmol/L (98-107); Estimated GFR 97; Globulin 2.7 g/dL (2.4-3.5); Glucose 106 mg/dL (80-115); Potassium 3.6 mmol/L (3.5-5.1); Protein, Total 6.7 g/dL (5.8-8.1); Sodium 141 mmol/L (136-145)
[2022-03-16 05:01] LABS: SARS-CoV-2 NAA Rapid Test DETECTED (NotDetected)
[2022-03-16] MEDS ORDERED: Ketorolac Tromethamine 30 MG/ML VIAL ONE (05:04)
[2022-03-16 07:44] LABS: Troponin I Less than 0.010 ng/mL (< 0.028)
== END 2022-03-16 08:01 ==
LOC: CSHERS 03:57
DX: U07.1 COVID-19 (principal); J43.9 Emphysema, unspecified; I10 Essential (primary) hypertension; E78.5 Hyperlipidemia, unspecified; E03.9 Hypothyroidism, unspecified; Z87.891 Personal history of nicotine dependence; Z79.01 Long term (current) use of anticoagulants
CPT/HCPCS: 36415; 71045; 80053; 84484; 85025; 93005; 96374; J1885; U0002

== ENCOUNTER 2022-03-30 02:04 | Emergency (ER) | payer OTHER ==
[2022-03-30 02:40] LABS: #Eosinphils 0.1 10x3/uL (0.0-0.5); #Monocytes 0.4 10x3/uL (0.0-1.1); #Neutrophils 2.5 10x3/uL (1.5-8.4); %Basophils 0.9 % (0.0-2.0); %Eosinophils 2.9 % (0.0-6.0); %Lymphocytes 30.2 % (18.0-47.0); %Monocytes 9.2 % (0.0-10.0); %Neutrophils 56.6 % (40.0-75.0); Hemoglobin 12.2 g/dL (13.5-17.5); Mean Corpuscular HGB CONC 33.4 g/dL (32.0-36.0); Mean Corpuscular Hemoglobin 29.5 pg (27.0-33.0); Mean Corpuscular Volume 88.2 fl (81.2-95.1); Mean Platelet Volume 10.9 fl (7.4-10.4); Platelet Count 257 10x3/uL (150-450); RBC Distribution Width 14.2 % (11.5-14.5); Red Blood Cell (RBC) Count 4.14 10x6/uL (4.32-5.72); White Blood Cell (WBC) Count 4.5 10x3/uL (3.5-10.5)
[2022-03-30 02:53] LABS: ALT (SGPT) 30 U/L (8-55); AST (SGOT) 20 U/L (5-34); Albumin 3.9 g/dL (3.4-4.8); Alkaline Phosphatase 47 U/L (40-110); Anion Gap 12 mmol/L (10-20); BUN (Urea Nitrogen) 17 mg/dL (8.4-25.7); Bilirubin, Total 0.6 mg/dL (0.2-1.2); Calc. Creatinine Clearance 0 mL/min (70-130); Calcium 8.6 mg/dL (7.8-10.44); Carbon Dioxide 24 mmol/L (23-31); Chloride 112 mmol/L (98-107); Estimated GFR 89; Globulin 2.5 g/dL (2.4-3.5); Glucose 110 mg/dL (80-115); Potassium 4.1 mmol/L (3.5-5.1); Protein, Total 6.4 g/dL (5.8-8.1); Sodium 144 mmol/L (136-145)
[2022-03-30] MEDS ORDERED: Acetaminophen 325 MG TAB ONE (03:04)
[2022-03-30 03:14] LABS: SARS-CoV-2 NAA Rapid Test Not Detected (NotDetected)
[2022-03-30] MEDS ORDERED: Ketorolac Tromethamine 30 MG/ML VIAL ONE (04:19)
[2022-03-30 06:21] LABS: Troponin I 0.016 ng/mL (< 0.028)
== END 2022-03-30 06:35 ==
LOC: EEVIPCON 02:04 → CSHERS 02:04
DX: R07.2 Precordial pain (principal); I25.10 Atherosclerotic heart disease of native coronary artery without angina pectoris; I48.91 Unspecified atrial fibrillation; J43.9 Emphysema, unspecified; I10 Essential (primary) hypertension; E78.5 Hyperlipidemia, unspecified; E03.9 Hypothyroidism, unspecified; Z87.891 Personal history of nicotine dependence; Z20.822 Contact with and (suspected) exposure to COVID-19
CPT/HCPCS: 71045; 80053; 83880; 84484; 85025; 93005; 96374; J1885; U0002

== ENCOUNTER 2022-04-03 20:43 | Emergency (ER) | payer OTHER ==
[2022-04-03] MEDS ORDERED: Aspirin Chewable 81 MG TAB ONE (21:19)
[2022-04-03 21:25] LABS: #Eosinphils 0.1 10x3/uL (0.0-0.5); #Monocytes 0.4 10x3/uL (0.0-1.1); #Neutrophils 2.4 10x3/uL (1.5-8.4); %Basophils 0.7 % (0.0-2.0); %Eosinophils 2.5 % (0.0-6.0); %Neutrophils 55.6 % (40.0-75.0); Hemoglobin 11.7 g/dL (13.5-17.5); Mean Corpuscular HGB CONC 33.6 g/dL (32.0-36.0); Mean Corpuscular Volume 89.2 fl (81.2-95.1); Mean Platelet Volume 10.5 fl (7.4-10.4); Platelet Count 261 10x3/uL (150-450); RBC Distribution Width 14.6 % (11.5-14.5); White Blood Cell (WBC) Count 4.4 10x3/uL (3.5-10.5)
[2022-04-03 21:36] LABS: ALT (SGPT) 22 U/L (8-55); AST (SGOT) 18 U/L (5-34); Albumin 3.8 g/dL (3.4-4.8); Alkaline Phosphatase 46 U/L (40-110); Anion Gap 13 mmol/L (10-20); BUN (Urea Nitrogen) 14 mg/dL (8.4-25.7); Bilirubin, Total 0.5 mg/dL (0.2-1.2); Calc. Creatinine Clearance 0 mL/min (70-130); Calcium 8.6 mg/dL (7.8-10.44); Carbon Dioxide 22 mmol/L (23-31); Chloride 112 mmol/L (98-107); Estimated GFR 97; Globulin 2.5 g/dL (2.4-3.5); Glucose 124 mg/dL (80-115); Lipase 58 U/L (8-78); Potassium 4.3 mmol/L (3.5-5.1); Protein, Total 6.3 g/dL (5.8-8.1); Sodium 143 mmol/L (136-145)
[2022-04-04 00:37] LABS: Troponin I Less than 0.010 ng/mL (< 0.028)
== END 2022-04-04 02:00 ==
LOC: EEVIPCON 20:43 → CSHERS 20:43
DX: R07.89 Other chest pain (principal); I25.10 Atherosclerotic heart disease of native coronary artery without angina pectoris; J44.9 Chronic obstructive pulmonary disease, unspecified; E78.5 Hyperlipidemia, unspecified; E03.9 Hypothyroidism, unspecified; Z87.891 Personal history of nicotine dependence
CPT/HCPCS: 71045; 80053; 83690; 84484; 85025; 93005

== ENCOUNTER 2022-04-06 13:07 | Emergency (ER) | payer OTHER ==
[2022-04-06 13:42] LABS: #Eosinphils 0.1 10x3/uL (0.0-0.5); #Monocytes 0.4 10x3/uL (0.0-1.1); #Neutrophils 2.6 10x3/uL (1.5-8.4); %Basophils 0.9 % (0.0-2.0); %Eosinophils 1.4 % (0.0-6.0); %Lymphocytes 28.1 % (18.0-47.0); %Monocytes 8.1 % (0.0-10.0); %Neutrophils 61.3 % (40.0-75.0); Hemoglobin 11.8 g/dL (13.5-17.5); Mean Corpuscular Hemoglobin 29.4 pg (27.0-33.0); Mean Corpuscular Volume 89.3 fl (81.2-95.1); Mean Platelet Volume 10.6 fl (7.4-10.4); Platelet Count 234 10x3/uL (150-450); RBC Distribution Width 14.6 % (11.5-14.5); Red Blood Cell (RBC) Count 4.01 10x6/uL (4.32-5.72); White Blood Cell (WBC) Count 4.3 10x3/uL (3.5-10.5)
[2022-04-06 14:00] LABS: ALT (SGPT) 20 U/L (8-55); AST (SGOT) 19 U/L (5-34); Alkaline Phosphatase 43 U/L (40-110); Anion Gap 13 mmol/L (10-20); BUN (Urea Nitrogen) 8 mg/dL (8.4-25.7); Bilirubin, Total 0.9 mg/dL (0.2-1.2); Calc. Creatinine Clearance 0 mL/min (70-130); Carbon Dioxide 24 mmol/L (23-31); Chloride 108 mmol/L (98-107); Estimated GFR 96; Globulin 2.6 g/dL (2.4-3.5); Glucose 88 mg/dL (80-115); Potassium 4.2 mmol/L (3.5-5.1); Protein, Total 6.6 g/dL (5.8-8.1); Sodium 141 mmol/L (136-145)
[2022-04-06] MEDS ORDERED: Nitroglycerin 2% Ointment 1 INCH/1 GM Packet ONE (14:02)
[2022-04-06] MEDS ORDERED: Ketorolac Tromethamine 30 MG/ML VIAL ONE (15:55)
[2022-04-06 16:00] LABS: Troponin I Less than 0.010 ng/mL (< 0.028)
== END 2022-04-06 16:37 ==
LOC: CSHERS 13:07 → EEVIPCON 13:07 → CSHERS 16:37
DX: R07.9 Chest pain, unspecified (principal); E78.5 Hyperlipidemia, unspecified; E03.9 Hypothyroidism, unspecified; I10 Essential (primary) hypertension; J44.9 Chronic obstructive pulmonary disease, unspecified; I25.10 Atherosclerotic heart disease of native coronary artery without angina pectoris; Z87.891 Personal history of nicotine dependence; Z79.01 Long term (current) use of anticoagulants; Z79.899 Other long term (current) drug therapy
CPT/HCPCS: 36415; 71045; 80053; 84484; 85025; 93005; 96372; J1885

== ENCOUNTER 2022-05-06 23:51 | Emergency (ER) | payer OTHER ==
[2022-05-07 00:22] LABS: #Eosinphils 0.1 10x3/uL (0.0-0.5); #Monocytes 0.4 10x3/uL (0.0-1.1); #Neutrophils 2.9 10x3/uL (1.5-8.4); %Basophils 0.4 % (0.0-2.0); %Eosinophils 1.3 % (0.0-6.0); %Lymphocytes 28.2 % (18.0-47.0); %Monocytes 8.1 % (0.0-10.0); %Neutrophils 61.8 % (40.0-75.0); Hemoglobin 10.9 g/dL (13.5-17.5); Mean Corpuscular HGB CONC 33.5 g/dL (32.0-36.0); Mean Corpuscular Hemoglobin 29.8 pg (27.0-33.0); Mean Corpuscular Volume 88.8 fl (81.2-95.1); Platelet Count 252 10x3/uL (150-450); RBC Distribution Width 13.8 % (11.5-14.5); Red Blood Cell (RBC) Count 3.66 10x6/uL (4.32-5.72); White Blood Cell (WBC) Count 4.7 10x3/uL (3.5-10.5)
[2022-05-07 00:31] LABS: INR-International Normal Ratio 1.2; PTT 29.6 sec (22.0-33.0); Prothrombin Time 12.4 sec (9.5-12.1)
[2022-05-07 00:34] LABS: ALT (SGPT) 18 U/L (8-55); AST (SGOT) 14 U/L (5-34); Albumin 3.8 g/dL (3.4-4.8); Alkaline Phosphatase 42 U/L (40-110); Anion Gap 13 mmol/L (10-20); BUN (Urea Nitrogen) 13 mg/dL (8.4-25.7); Bilirubin, Total 0.5 mg/dL (0.2-1.2); Calc. Creatinine Clearance 0 mL/min (70-130); Calcium 8.8 mg/dL (7.8-10.44); Carbon Dioxide 25 mmol/L (23-31); Chloride 108 mmol/L (98-107); Estimated GFR 85; Globulin 2.8 g/dL (2.4-3.5); Glucose 91 mg/dL (80-115); Potassium 3.8 mmol/L (3.5-5.1); Protein, Total 6.6 g/dL (5.8-8.1); Sodium 142 mmol/L (136-145)
[2022-05-07 00:55] LABS: SARS-CoV-2 NAA Rapid Test Not Detected (NotDetected)
[2022-05-07] MEDS ORDERED: Ketorolac Tromethamine 30 MG/ML VIAL ONE (01:20)
[2022-05-07] MEDS ORDERED: Morphine 4 MG/ML VIAL ONE (03:45)
[2022-05-07] MEDS ORDERED: Ondansetron PF 4 MG/2 ML Vial ONE (03:46)
== END 2022-05-07 04:50 | disposition short-term general hospital (02) ==
LOC: CSHERS 23:51
DX: R07.9 Chest pain, unspecified (principal); I25.10 Atherosclerotic heart disease of native coronary artery without angina pectoris; J43.9 Emphysema, unspecified; I10 Essential (primary) hypertension; E78.5 Hyperlipidemia, unspecified; E03.9 Hypothyroidism, unspecified; Z87.891 Personal history of nicotine dependence; Z79.82 Long term (current) use of aspirin; Z79.899 Other long term (current) drug therapy; Z79.01 Long term (current) use of anticoagulants; Z20.822 Contact with and (suspected) exposure to COVID-19
CPT/HCPCS: 36415; 71045; 80053; 83880; 84484; 85025; 85610; 85730; 93005; 96374; 96375; J1885; J2270; J2405; U0002

== ENCOUNTER 2022-05-27 01:25 | Inpatient (IN) | payer OTHER ==
[2022-05-27] MEDS ORDERED: Morphine 4 MG/ML VIAL ONE ×2 (02:04→06:05)
[2022-05-27 02:18] LABS: #Eosinphils 0.1 10x3/uL (0.0-0.5); #Monocytes 0.4 10x3/uL (0.0-1.1); #Neutrophils 3.6 10x3/uL (1.5-8.4); %Basophils 0.7 % (0.0-2.0); %Eosinophils 2.1 % (0.0-6.0); %Lymphocytes 27.7 % (18.0-47.0); %Monocytes 7.6 % (0.0-10.0); %Neutrophils 61.6 % (40.0-75.0); Mean Corpuscular HGB CONC 33.7 g/dL (32.0-36.0); Mean Corpuscular Hemoglobin 29.4 pg (27.0-33.0); Mean Corpuscular Volume 87.3 fl (81.2-95.1); Mean Platelet Volume 10.7 fl (7.4-10.4); Platelet Count 278 10x3/uL (150-450); RBC Distribution Width 13.3 % (11.5-14.5); Red Blood Cell (RBC) Count 4.08 10x6/uL (4.32-5.72); White Blood Cell (WBC) Count 5.8 10x3/uL (3.5-10.5)
[2022-05-27 02:34] LABS: ALT (SGPT) 19 U/L (8-55); AST (SGOT) 16 U/L (5-34); Alkaline Phosphatase 51 U/L (40-110); Anion Gap 15 mmol/L (10-20); BUN (Urea Nitrogen) 20 mg/dL (8.4-25.7); Bilirubin, Total 0.4 mg/dL (0.2-1.2); Calc. Creatinine Clearance 0 mL/min (70-130); Calcium 8.9 mg/dL (7.8-10.44); Carbon Dioxide 24 mmol/L (23-31); Chloride 109 mmol/L (98-107); Estimated GFR 85; Globulin 2.7 g/dL (2.4-3.5); Glucose 96 mg/dL (80-115); Lipase 47 U/L (8-78); Potassium 3.7 mmol/L (3.5-5.1); Protein, Total 6.7 g/dL (5.8-8.1); Sodium 144 mmol/L (136-145)
[2022-05-27 03:00] LABS: CKMB 1.2 ng/mL (0-6.6)
[2022-05-27] MEDS ORDERED: Fentanyl 100 MCG/2 ML VIAL ONE (03:22)
[2022-05-27 04:06] LABS: INR-International Normal Ratio 1.2; PTT 29.7 sec (22.0-33.0); Prothrombin Time 12.4 sec (9.5-12.1)
[2022-05-27] MEDS ORDERED: predniSONE 20 MG TAB ONE (04:56)
[2022-05-27 06:35] LABS: CKMB 1.1 ng/mL (0-6.6)
[2022-05-27] MEDS ORDERED: Amlodipine 5 MG TAB ONE (07:56)
[2022-05-27] MEDS ORDERED: Aspirin Chewable 81 MG TAB ONE (07:56)
[2022-05-27] MEDS ORDERED: Clopidogrel Bisulfate 75 MG TAB ONE (07:56)
[2022-05-27] MEDS ORDERED: DULoxetine 30 MG CAP PO SCH (08:00)
[2022-05-27] MEDS ORDERED: Levothyroxine Sodium 100 MCG TAB PO SCH (08:00)
[2022-05-27] MEDS ORDERED: Furosemide 20 MG TAB PO SCH (08:00)
[2022-05-27] MEDS ORDERED: Ondansetron ODT 4 MG TAB PO PRN (08:09)
[2022-05-27] MEDS ORDERED: Ondansetron PF 4 MG/2 ML Vial IVP PRN (08:09)
[2022-05-27] MEDS ORDERED: Acetaminophen 325 MG TAB PO PRN (08:09)
[2022-05-27] MEDS ORDERED: Carvedilol 25 MG TAB PO SCH (08:15)
[2022-05-27 09:42] LABS: Bilirubin Neg (Negative); Blood, Urine Negative (Negative); Clarity Slightly Cloudy (Clear); Glucose, Urine (Dipstick) Normal (Negative); Ketone, Urine Negative (Negative); Leukocyte 25 (Negative); Nitrite Negative (Negative); Protein, Urine (Dipstick) 30 mg/dl (Neg-Trace); Specific Gravity, Urine 1.025 (1.005-1.030)
[2022-05-27 09:57] LABS: Bacteria/HPF Rare-Few HPF (None Seen); Mucous/LPF 2+ LPF (<2+); RBC/HPF None Seen HPF (0-3); Squamous Epithelial 0-3 HPF (0-3); WBC/HPF 0-3 HPF (0-3)
[2022-05-27] MEDS ORDERED: Nitroglycerin 0.4 MG TAB (25 Tab Bottle) SL SCH (10:42)
[2022-05-27] MEDS ORDERED: Nitroglycerin 0.4 MG TAB 1 EACH ONE (11:04)
[2022-05-27] MEDS ORDERED: Ventolin HFA Inhaler 60 PUFF INHALER INH PRN (11:10)
[2022-05-27] MEDS ORDERED: Potassium Chloride 20 MEQ TAB PO SCH (13:15)
[2022-05-27 13:41] VITALS: BMI 30.5
[2022-05-27] MEDS: Aspirin Chewable 81 MG TAB PO SCH (13:47)
[2022-05-27] MEDS: HYDROcodone/Acetaminophen 5/325 mg Tablet PO PRN ×3 (14:19→22:55)
[2022-05-27] MEDS: Furosemide 20 MG TAB PO SCH (14:19)
[2022-05-27 16:57] LABS: Hemoglobin A1c 4.9 % (4.0-6.0)
[2022-05-27] MEDS ORDERED: Warfarin Sodium 7.5 MG TAB PO SCH (17:00)
[2022-05-27] MEDS: Carvedilol 25 MG TAB PO SCH (22:56)
[2022-05-27] MEDS: Terazosin HCl 5 MG CAP PO SCH (22:57)
[2022-05-27] MEDS: Atorvastatin Calcium 40 MG TAB PO SCH (22:57)
[2022-05-28 05:05] LABS: Anion Gap 12 mmol/L (10-20); BUN (Urea Nitrogen) 14 mg/dL (8.4-25.7); Calc. Creatinine Clearance 126 mL/min (70-130); Calcium 8.7 mg/dL (7.8-10.44); Carbon Dioxide 25 mmol/L (23-31); Chloride 108 mmol/L (98-107); Estimated GFR 93; Glucose 136 mg/dL (80-115); Potassium 3.7 mmol/L (3.5-5.1); Sodium 141 mmol/L (136-145)
[2022-05-28] MEDS: HYDROcodone/Acetaminophen 5/325 mg Tablet PO PRN ×4 (05:08→22:27)
[2022-05-28] MEDS: Levothyroxine Sodium 100 MCG TAB PO SCH (05:10)
[2022-05-28 05:30] LABS: #Eosinphils 0.1 10x3/uL (0.0-0.5); #Monocytes 0.5 10x3/uL (0.0-1.1); #Neutrophils 5.4 10x3/uL (1.5-8.4); %Basophils 0.4 % (0.0-2.0); %Eosinophils 0.6 % (0.0-6.0); %Lymphocytes 22.5 % (18.0-47.0); %Monocytes 6.8 % (0.0-10.0); %Neutrophils 69.4 % (40.0-75.0); Hemoglobin 11.6 g/dL (13.5-17.5); Mean Corpuscular HGB CONC 33.5 g/dL (32.0-36.0); Mean Corpuscular Hemoglobin 29.5 pg (27.0-33.0); Mean Platelet Volume 10.8 fl (7.4-10.4); Platelet Count 270 10x3/uL (150-450); RBC Distribution Width 13.3 % (11.5-14.5); Red Blood Cell (RBC) Count 3.93 10x6/uL (4.32-5.72); White Blood Cell (WBC) Count 7.7 10x3/uL (3.5-10.5)
[2022-05-28 05:44] LABS: Cardiac Risk 2.6 (Less than 4.5); Cholesterol 98 mg/dl (< 200 Desired); HDL Cholesterol 37 mg/dL (>60 Neg Risk); LDL Cholesterol, Calculated 50 mg/dL; Triglycerides 55 mg/dL (Less than 150)
[2022-05-28] MEDS: DULoxetine 30 MG CAP PO SCH (08:33)
[2022-05-28] MEDS: Furosemide 20 MG TAB PO SCH (08:33)
[2022-05-28] MEDS: Aspirin Chewable 81 MG TAB PO SCH (08:33)
[2022-05-28] MEDS: Clopidogrel Bisulfate 75 MG TAB PO SCH (08:33)
[2022-05-28] MEDS: Carvedilol 25 MG TAB PO SCH ×2 (08:33→22:21)
[2022-05-28] MEDS: Amlodipine 10 MG TAB PO SCH (10:19)
[2022-05-28] MEDS ORDERED: Potassium Chloride 20 MEQ TAB PO SCH (10:30)
[2022-05-28 11:54] LABS: Troponin I 0.017 ng/mL (< 0.028)
[2022-05-28] MEDS ORDERED: Spironolactone 25 MG TAB PO SCH (12:00)
[2022-05-28] MEDS: Atorvastatin Calcium 40 MG TAB PO SCH (22:20)
[2022-05-28] MEDS: Terazosin HCl 5 MG CAP PO SCH (22:20)
[2022-05-29] MEDS: HYDROcodone/Acetaminophen 5/325 mg Tablet PO PRN ×3 (04:46→21:25)
[2022-05-29] MEDS: Levothyroxine Sodium 100 MCG TAB PO SCH (04:54)
[2022-05-29 05:42] LABS: #Basophils 0.1 10x3/uL (0.0-0.2); #Eosinphils 0.2 10x3/uL (0.0-0.5); #Monocytes 0.3 10x3/uL (0.0-1.1); #Neutrophils 2.8 10x3/uL (1.5-8.4); %Eosinophils 3.6 % (0.0-6.0); %Lymphocytes 40.9 % (18.0-47.0); %Monocytes 5.5 % (0.0-10.0); %Neutrophils 48.7 % (40.0-75.0); Hemoglobin 11.7 g/dL (13.5-17.5); Mean Corpuscular HGB CONC 32.3 g/dL (32.0-36.0); Mean Corpuscular Volume 89.6 fl (81.2-95.1); Mean Platelet Volume 10.8 fl (7.4-10.4); Platelet Count 269 10x3/uL (150-450); RBC Distribution Width 13.4 % (11.5-14.5); Red Blood Cell (RBC) Count 4.04 10x6/uL (4.32-5.72); White Blood Cell (WBC) Count 5.8 10x3/uL (3.5-10.5)
[2022-05-29 05:52] LABS: Anion Gap 13 mmol/L (10-20); BUN (Urea Nitrogen) 14 mg/dL (8.4-25.7); Calc. Creatinine Clearance 114 mL/min (70-130); Calcium 8.6 mg/dL (7.8-10.44); Carbon Dioxide 25 mmol/L (23-31); Chloride 107 mmol/L (98-107); Estimated GFR 84; Glucose 122 mg/dL (80-115); Sodium 141 mmol/L (136-145)
[2022-05-29] MEDS: DULoxetine 30 MG CAP PO SCH (08:09)
[2022-05-29] MEDS: Clopidogrel Bisulfate 75 MG TAB PO SCH (08:10)
[2022-05-29] MEDS: Spironolactone 25 MG TAB PO SCH (08:10)
[2022-05-29] MEDS: Carvedilol 25 MG TAB PO SCH (08:10)
[2022-05-29] MEDS: Aspirin Chewable 81 MG TAB PO SCH (08:10)
[2022-05-29] MEDS: Amlodipine 10 MG TAB PO SCH (08:11)
[2022-05-29] MEDS: Terazosin HCl 5 MG CAP PO SCH (21:21)
[2022-05-29] MEDS: Carvedilol 12.5 MG TAB PO SCH (21:22)
[2022-05-29] MEDS: Atorvastatin Calcium 40 MG TAB PO SCH (21:22)
[2022-05-30] MEDS: HYDROcodone/Acetaminophen 5/325 mg Tablet PO PRN ×4 (02:19→21:50)
[2022-05-30] MEDS: Levothyroxine Sodium 100 MCG TAB PO SCH (05:05)
[2022-05-30 05:56] LABS: #Eosinphils 0.2 10x3/uL (0.0-0.5); #Monocytes 0.3 10x3/uL (0.0-1.1); %Basophils 0.7 % (0.0-2.0); %Eosinophils 2.8 % (0.0-6.0); %Lymphocytes 36.2 % (18.0-47.0); %Monocytes 5.9 % (0.0-10.0); Hemoglobin 11.7 g/dL (13.5-17.5); Mean Corpuscular HGB CONC 32.7 g/dL (32.0-36.0); Mean Corpuscular Hemoglobin 29.2 pg (27.0-33.0); Mean Corpuscular Volume 89.3 fl (81.2-95.1); Mean Platelet Volume 10.6 fl (7.4-10.4); Platelet Count 261 10x3/uL (150-450); RBC Distribution Width 13.4 % (11.5-14.5); Red Blood Cell (RBC) Count 4.01 10x6/uL (4.32-5.72); White Blood Cell (WBC) Count 5.6 10x3/uL (3.5-10.5)
[2022-05-30 06:03] LABS: Anion Gap 12 mmol/L (10-20); BUN (Urea Nitrogen) 13 mg/dL (8.4-25.7); Calc. Creatinine Clearance 111 mL/min (70-130); Carbon Dioxide 27 mmol/L (23-31); Chloride 106 mmol/L (98-107); Estimated GFR 81; Glucose 116 mg/dL (80-115); Sodium 141 mmol/L (136-145)
[2022-05-30] MEDS: Aspirin Chewable 81 MG TAB PO SCH (09:10)
[2022-05-30] MEDS: DULoxetine 30 MG CAP PO SCH (09:10)
[2022-05-30] MEDS: Clopidogrel Bisulfate 75 MG TAB PO SCH (09:10)
[2022-05-30] MEDS: Spironolactone 25 MG TAB PO SCH (09:10)
[2022-05-30] MEDS: Carvedilol 12.5 MG TAB PO SCH ×2 (09:11→21:49)
[2022-05-30] MEDS: Amlodipine 10 MG TAB PO SCH (09:11)
[2022-05-30] MEDS ORDERED: Nitroglycerin 0.4 MG TAB (25 Tab Bottle) SL PRN (18:24)
[2022-05-30] MEDS: Terazosin HCl 5 MG CAP PO SCH (21:50)
[2022-05-30] MEDS: Atorvastatin Calcium 40 MG TAB PO SCH (21:50)
[2022-05-31] MEDS: Levothyroxine Sodium 100 MCG TAB PO SCH (06:24)
[2022-05-31 06:28] LABS: Anion Gap 12 mmol/L (10-20); BUN (Urea Nitrogen) 13 mg/dL (8.4-25.7); Calc. Creatinine Clearance 126 mL/min (70-130); Calcium 8.8 mg/dL (7.8-10.44); Carbon Dioxide 27 mmol/L (23-31); Chloride 105 mmol/L (98-107); Estimated GFR 93; Glucose 80 mg/dL (80-115); Magnesium 2.1 mg/dL (1.6-2.6); Potassium 4.2 mmol/L (3.5-5.1); Sodium 140 mmol/L (136-145)
[2022-05-31 07:17] LABS: #Eosinphils 0.2 10x3/uL (0.0-0.5); #Monocytes 0.4 10x3/uL (0.0-1.1); #Neutrophils 3.1 10x3/uL (1.5-8.4); %Basophils 0.4 % (0.0-2.0); %Eosinophils 2.8 % (0.0-6.0); %Lymphocytes 33.4 % (18.0-47.0); %Monocytes 6.8 % (0.0-10.0); %Neutrophils 56.2 % (40.0-75.0); Hemoglobin 11.8 g/dL (13.5-17.5); Mean Corpuscular HGB CONC 33.7 g/dL (32.0-36.0); Mean Corpuscular Hemoglobin 29.9 pg (27.0-33.0); Mean Corpuscular Volume 88.6 fl (81.2-95.1); Mean Platelet Volume 10.9 fl (7.4-10.4); Platelet Count 253 10x3/uL (150-450); RBC Distribution Width 13.2 % (11.5-14.5); Red Blood Cell (RBC) Count 3.95 10x6/uL (4.32-5.72); White Blood Cell (WBC) Count 5.4 10x3/uL (3.5-10.5)
[2022-05-31] MEDS: Aspirin Chewable 81 MG TAB PO SCH (08:11)
[2022-05-31] MEDS: DULoxetine 30 MG CAP PO SCH (08:11)
[2022-05-31] MEDS: Amlodipine 10 MG TAB PO SCH (08:12)
[2022-05-31] MEDS: Clopidogrel Bisulfate 75 MG TAB PO SCH (08:12)
[2022-05-31] MEDS: Spironolactone 25 MG TAB PO SCH (08:12)
[2022-05-31] MEDS: Carvedilol 12.5 MG TAB PO SCH (08:12)
[2022-05-31 19:49] VITALS: BP 102/58; TEMP 97.8
== END 2022-05-31 16:23 | disposition home or self-care (01) | DRG 303 ==
LOC: SUATTDRO 01:25 → CSHERS 01:25 → INTOOBSV 09:20 → EEVIPCON 09:20 → CSHERHOLD 09:20 → CSHTELE 12:52 → OBSVTOIN 05-29 13:42
PROVIDERS: ADMIT Internal Medicine; ATTEND Internal Medicine
DX: I25.110 Atherosclerotic heart disease of native coronary artery with unstable angina pectoris (principal); I48.92 Unspecified atrial flutter; J44.9 Chronic obstructive pulmonary disease, unspecified; I10 Essential (primary) hypertension; E78.5 Hyperlipidemia, unspecified; E03.9 Hypothyroidism, unspecified; G47.33 Obstructive sleep apnea (adult) (pediatric); G62.9 Polyneuropathy, unspecified; F31.9 Bipolar disorder, unspecified; I48.0 Paroxysmal atrial fibrillation; N40.0 Benign prostatic hyperplasia without lower urinary tract symptoms; Z88.0 Allergy status to penicillin; Z79.51 Long term (current) use of inhaled steroids; Z79.82 Long term (current) use of aspirin; Z79.899 Other long term (current) drug therapy; Z95.1 Presence of aortocoronary bypass graft; Z95.5 Presence of coronary angioplasty implant and graft; Z79.01 Long term (current) use of anticoagulants; Z87.891 Personal history of nicotine dependence
CPT/HCPCS: 36415; 71045; 80048; 80053; 80061; 81003; 81015; 82553; 83036; 83690; 83735; 83880; 84443; 84484; 85025; 85610; 85730; 93005; 93010; 93306; 94660; 94760; 94762; 96372; 96374; 96375; 96376; G0378; J1650; J2270; J3010; J7512; J7611

== ENCOUNTER 2022-06-04 00:28 | Emergency (ER) | payer OTHER ==
[2022-06-04 01:04] LABS: #Eosinphils 0.1 10x3/uL (0.0-0.5); #Monocytes 0.5 10x3/uL (0.0-1.1); #Neutrophils 3.1 10x3/uL (1.5-8.4); %Basophils 0.6 % (0.0-2.0); %Eosinophils 2.1 % (0.0-6.0); %Lymphocytes 29.3 % (18.0-47.0); %Monocytes 8.5 % (0.0-10.0); %Neutrophils 59.1 % (40.0-75.0); Hemoglobin 11.9 g/dL (13.5-17.5); Mean Corpuscular HGB CONC 33.7 g/dL (32.0-36.0); Mean Corpuscular Hemoglobin 29.7 pg (27.0-33.0); Mean Platelet Volume 10.6 fl (7.4-10.4); Platelet Count 247 10x3/uL (150-450); RBC Distribution Width 13.3 % (11.5-14.5); Red Blood Cell (RBC) Count 4.01 10x6/uL (4.32-5.72); White Blood Cell (WBC) Count 5.3 10x3/uL (3.5-10.5)
[2022-06-04 01:18] LABS: ALT (SGPT) 47 U/L (8-55); AST (SGOT) 24 U/L (5-34); Albumin 3.9 g/dL (3.4-4.8); Alkaline Phosphatase 52 U/L (40-110); Anion Gap 14 mmol/L (10-20); BUN (Urea Nitrogen) 9 mg/dL (8.4-25.7); Bilirubin, Total 0.3 mg/dL (0.2-1.2); Calc. Creatinine Clearance 0 mL/min (70-130); Calcium 8.6 mg/dL (7.8-10.44); Carbon Dioxide 25 mmol/L (23-31); Chloride 108 mmol/L (98-107); Estimated GFR 98; Globulin 2.6 g/dL (2.4-3.5); Glucose 91 mg/dL (80-115); Potassium 3.8 mmol/L (3.5-5.1); Protein, Total 6.5 g/dL (5.8-8.1); Sodium 143 mmol/L (136-145)
== END 2022-06-04 01:34 ==
LOC: CSHERS 00:28 → UNDOADMIN 06-05 21:27 → CSHERHOLD 06-05 21:27
DX: R07.2 Precordial pain (principal); I25.10 Atherosclerotic heart disease of native coronary artery without angina pectoris; I48.92 Unspecified atrial flutter; J44.9 Chronic obstructive pulmonary disease, unspecified; I10 Essential (primary) hypertension; E78.5 Hyperlipidemia, unspecified; E03.9 Hypothyroidism, unspecified; G47.30 Sleep apnea, unspecified; Z87.891 Personal history of nicotine dependence; Z79.899 Other long term (current) drug therapy; Z79.01 Long term (current) use of anticoagulants; Z79.82 Long term (current) use of aspirin
CPT/HCPCS: 71045; 80053; 84484; 85025; 93005